=== PATIENT | male | born 1950 | race American Indian/Alaskan Native ===

== ENCOUNTER 2016-04-16 09:20 | Day surgery (SDC) | payer MEDICARE ==
--- NOTE | 2016-04-16 09:54 | Anesthesia Day of Surgery ---
Anesthesia Day of Surgery - Day of Surgery Patient Examined: Yes Patient H&P Reviewed: Yes Patient is NPO: Yes
--- NOTE | 2016-04-16 09:54 | Anesthesia Consultation ---
Anesthesia Consult and Med Hx Date of service: 04/16/16 - Airway Anesthetic Teeth Evaluation: Dentures ROM Head & Neck: Adequate Mental/Hyoid Distance: Adequate Mallampati Class: Class I Intubation Access Assessment: Good - Pulmonary Exam CTA: Yes - Cardiac Exam Cardiac Exam: RRR - Pre-Operative Health Status ASA Pre-Surgery Classification: ASA2 Proposed Anesthetic Plan: General - Pulmonary Hx Smoking: Yes (1 PPD X 40 YRS) Hx Sleep Apnea: No (VERONICA PRE SCREEN HIGH RISK) - Cardiovascular System Hx Hypertension: Yes (RECENT DX- ON MEDS X 1 MONTH) - Other Systems Hx Alcohol Use: Yes (2-3 DRINKS PER DAY) Hx Substance Use: Yes (MARIJUANA 3-4 X PER WEEEK) Hx Cancer: No
[2016-04-16] MEDS ORDERED: PEPCID PO NR (10:00)
[2016-04-16] MEDS ORDERED: NACL 0.9% 1000 ML 1,000 ML IV SCH (10:00)
[2016-04-16] MEDS ORDERED: VERSED IV NR (10:00)
[2016-04-16 10:25] LABS: Hematocrit 44.5 % (35.5-45.6); Hemoglobin 14.9 gm/dl (11.8-15.2)
[2016-04-16] MEDS ORDERED: DIPRIVAN 10 MG/ML IV ONE (10:48)
[2016-04-16] MEDS ORDERED: XYLOCAINE MPF 2% ONE (10:48)
[2016-04-16] MEDS ORDERED: SUBLIMAZE ONE (10:48)
[2016-04-16] MEDS ORDERED: ZOFRAN IV PRN (10:50)
[2016-04-16] MEDS ORDERED: PERCOCET 5/325 PO PRN (10:50)
[2016-04-16] MEDS ORDERED: ANCEF/STERILE WATER 2 GM/20 ML IV NR (12:00)
[2016-04-16] MEDS ORDERED: OMNIPAQUE 300 MG/50 ML (CATH LAB) IV ONE (12:07)
[2016-04-16] MEDS ORDERED: WATER FOR IRRIG STERILE IR ONE ×2 (12:07)
[2016-04-16] MEDS: DILAUDID IV PRN ×2 (12:40→12:50)
--- NOTE | 2016-04-16 12:54 | Post Operative Note ---
Date of procedure: 04/16/16 Pre-op diagnosis: hematuria Post-op diagnosis: same Findings: bph Procedure: cysto biopsy rpgs Anesthesia: GETA Surgeon: MANOLO WELSH Estimated blood loss: none Pathology: list (bladder) Specimen disposition: to lab Condition: stable Disposition: PACU
--- NOTE | 2016-04-16 12:56 | Discharge Summary ---
Short Stay Discharge Plan Activity: other (no straining ) Weight Bearing Status: Full Weight Bearing Diet: low fat, low cholesterol, low salt Special Instructions: other (inc fluids ) Durable Medical Equipment Needed Upon Discharge: Nebulizer Follow up with: JOSE ORLANDO MD [Primary Care Provider] - 7 Days MANOLO WELSH MD [Staff Physician] - 14 Days
--- NOTE | 2016-04-16 14:10 | Post Anesthesia Evaluation ---
- Post Anesthesia Evaluation Patient Participated: Yes Airway Patent: Yes Stable Respiratory Function: Yes Nausea/Vomiting: No Temp > 96.8F: Yes Pain Manageable: Yes Adequeate Hydration: Yes Anesthesia Complications: No Block Receding Appropriately: Not Applicable Patient on Ventilator: No
[2016-04-16 15:51] VITALS: BP 168/90
--- NOTE | 2016-04-16 20:05 | Operative Report ---
PREOPERATIVE DIAGNOSIS: Hematuria. POSTOPERATIVE DIAGNOSIS: Hematuria. PROCEDURE: Cystoscopy, bladder biopsy, retrograde. SURGEON: Zackary Aleman MD ANESTHESIA: General. FINDINGS: This is a gentleman with hematuria. He has prostatism. Now presents for cystoscopy. DESCRIPTION OF PROCEDURE: The patient was brought to operating room and placed on the operating table. Following induction of anesthesia, placed in lithotomy position, prepped and draped in usual sterile fashion. Cystourethroscopy showed some mild prostatic enlargement. Mostly bilobar. There was no large middle lobe. The bladder wall was minimally trabeculated 1+. Retrograde showed good filling, good drainage with slightly orifices. There was a little erythema posteriorly and biopsy was obtained. The area was cauterized. The patient tolerated the procedure well. Garcia was left. It will be removed prior to discharge. He was brought to recovery in stable condition. JOB# [id number] LUANA/TWAN
--- NOTE | 2016-04-19 07:22 | Fluoroscopy Report ---
RETROGRADE PYELOGRAM: History: Hematuria. Fluoroscopy was provided by radiology during retrograde urography by Dr. Aleman. 9 fluoroscopic images captured. There is adequate filling of the ureters and intrarenal collecting systems with no filling defects or anatomic abnormalities identified. Bladder biopsy was performed. Please correlate with the procedural report. Impression: Normal exam.
== END 2016-04-16 14:35 | disposition home or self-care (01) ==
LOC: OR 09:20
PROVIDERS: ATTEND Urology
DX: R31.9 Hematuria, unspecified (principal); N40.0 Benign prostatic hyperplasia without lower urinary tract symptoms; I10 Essential (primary) hypertension; F12.90 Cannabis use, unspecified, uncomplicated; Z72.89 Other problems related to lifestyle; Z87.891 Personal history of nicotine dependence
CPT/HCPCS: 36415; 52204; 74420; 85014; 85018; 88305; A4217; C1758; J0690; J1170; J2250; J2405; J2704; J3010; J7030; Q9967

== ENCOUNTER 2018-09-13 08:51 | Outpatient (CLI) | payer MEDICARE ==
[2018-09-13 09:38] LABS: Hematocrit 45.8 % (35.5-45.6); Hemoglobin 15.6 gm/dl (11.8-15.2); Mean Corpuscular HGB Conc 34 % (32-34); Mean Corpuscular Volume 98 fl (84-94); Platelet Count 199 K/mm3 (140-440); Red Blood Count 4.66 M/mm3 (3.65-5.03); Red Cell Distribution Width 16.8 % (13.2-15.2)
[2018-09-13 09:53] LABS: Alanine Aminotransferase 30 units/L (7-56); Albumin 4.2 g/dL (3.9-5); BUN/Creatinine Ratio 9; Blood Urea Nitrogen 8 mg/dL (9-20); Calcium 9.1 mg/dL (8.4-10.2); Hemolysis Index 6
[2018-09-13 10:10] LABS: Erythrocyte Sedimentation Rate 1 mm/Hr (0-20)
[2018-09-16 19:14] LABS: Vitamin D, 25-OH, D2 <4 ng/mL
== END 2018-09-13 08:52 | disposition home or self-care (01) ==
LOC: LAB 08:51
PROVIDERS: ATTEND Specialist
DX: G65.1 Sequelae of other inflammatory polyneuropathy (principal); G62.9 Polyneuropathy, unspecified; I10 Essential (primary) hypertension
CPT/HCPCS: 36415; 80053; 82306; 82607; 82747; 83921; 84443; 85027; 85652; 86334; 86592; 87806